=== PATIENT | female | born 1990 | race Caucasian/White ===

== ENCOUNTER 2024-11-21 17:35 | Emergency (ER) | payer BC, SELFPAY ==
[2024-11-21] MEDS ORDERED: METOCLOPRAMIDE 10 MG/2mL INJ ONE (19:19)
[2024-11-21] MEDS ORDERED: DIPHENHYDRAMINE 50 MG/ML VIAL ONE (19:19)
[2024-11-21] MEDS ORDERED: NA CHLORIDE 0.9% 1,000 ML ONE (19:19)
[2024-11-21 19:20] LABS: Absolute Basophils 0.1 K/uL (0-0.5); Absolute Eosinophils 0.4 K/uL (0-0.5); Absolute Lymphocytes (CBC) 2.4 K/uL (0.7-4.9); Absolute Monocytes 0.7 K/uL (0.1-1.3); Absolute Neutrophil 8.1 K/uL (1.8-8.0); Eosinophils % 3.4 % (0-4.4); Hematocrit 38.4 % (36.0-45.0); Hemoglobin 12.6 g/dL (12.0-15.0); Lymphocytes % 20.7 % (15.3-44.8); MCH 26.4 pg (27.0-35.0); MCHC 32.8 g/dL (32.0-36.0); MCV 80.4 fL (80-100); MPV 7.9 fL (7.6-11.3); Monocytes % 5.8 % (3.3-12.3); Neutrophils % 69.1 % (41.7-73.7); Platelets 418 thou/uL (152-406); RBC Red Blood Cell Count 4.78 M/uL (3.86-4.86); Red Cell Distribution Width 16.4 % (12.1-15.2)
[2024-11-21 19:25] LABS: PT Prothrombin Time 12.5 SECONDS (10.0-13.0); Protime INR 1.1
--- NOTE | 2024-11-21 19:35 | RAD REPORT ---
EXAM: Chest Single View HISTORY: hypertension COMPARISON: None. FINDINGS: LUNGS/PLEURA: Mild haziness in the lung bases likely due to underpenetration. Relative haziness in th e lung bases likely due to underpenetration. No definite acute process. MEDIASTINUM: The mediastinal silhouette is within normal limits. CARDIAC: The cardiac silhouette is within normal limits. UPPER ABDOMEN: No significant abnormality. BONES: No acute abnormality. LINES/TUBES/OTHER: N/A IMPRESSION: Probable underpenetration resulting in haziness at the lung bases. No definite acute process. A stand celina PA and lateral could better evaluate.
[2024-11-21 19:37] LABS: ALT/SGPT 82 U/L (13-56); AST/SGOT 40 U/L (15-37); Albumin 3.5 g/dL (3.4-5.0); Albumin/Globulin Ratio 0.9 (1.1-1.8); Alkaline Phosphatase 71 U/L (45-117); Anion Gap 10.6 mEq/L (5.0-15.0); BUN Blood Urea Nitrogen 15 mg/dL (7-18); Bicarbonate 27 mEq/L (21-32); Bilirubin Total 0.3 mg/dL (0.2-1.0); Globulin 4.1 g/dL (2.3-3.5); Glomerular Filtration Rate 79 ml/min (=/>90); Glucose Level 94 mg/dL (74-106); Magnesium 2.2 mg/dL (1.6-2.4); Potassium 3.6 mEq/L (3.5-5.1); Protein, Total 7.6 g/dL (6.4-8.2); Sodium Level 137 mEq/L (136-145); Troponin High Sensitivity 3.3 pg/mL (<58.9)
--- NOTE | 2024-11-21 19:38 | RAD REPORT ---
EXAMINATION: CT HEAD WITHOUT CONTRAST CLINICAL INDICATION: Female, 34 years old.HEADACHE TECHNIQUE: Axial CT images from the skull base to the vertex without intravenous contrast. Coronal an d sagittal reformatted images were created from the data set. One or more of the following dose reduction techniques were used: Automated exposure control, adjustment of the mA and/or kV according to patient size, and/or iterative reconstruction. Unless otherwise specified, incidental findings do not require dedicated imaging follow-up. [id number]. COMPARISON: No prior exam. FINDINGS: INTRACRANIAL: No acute intracranial hemorrhage. No hydrocephalus. No mass effect or midline shift. No significant white matter disease. VASCULATURE: No visualized abnormalities in the arteries or dural venous sinuses. SCALP/SKULL: No significant soft tissue or osseous abnormalities. SINUSES: Mucus retention cyst in the left maxillary sinus. IMPRESSION: No acute intracranial abnormality.
[2024-11-21 19:41] LABS: Bilirubin Direct < 0.2 mg/dL (0-0.2); Bilirubin Indirect, Calculated 0.1 mg/dL (0.2-0.8)
[2024-11-21] MEDS ORDERED: KETOROLAC 30 MG/ML INJ ONE (20:12)
--- NOTE | 2024-11-21 20:53 | ER ---
Nurse's Notes [facility] Name: Radha Reina Age: 34 yrs Sex: Female : 1990 Arrival Date: 11/21/2024 Time: 17:35 Bed 28 Private MD: Diagnosis: Elevated blood-pressure reading, without diagnosis of hypertension;Headache Presentation: 11/21 18:12 Chief complaint: Patient states: she has been having a migraine for a week, and went to [facility] urgent care for evaluation. it was there that she was told her blood pressure was elevated and "they gave me a shot, but my blood pressure has just gotten higher since I got home.". Coronavirus screen: At this time, the client does not indicate any symptoms associated with coronavirus-19. Ebola Screen: No symptoms or risks identified at this time. Initial Sepsis Screen: Does the patient meet any 2 criteria? No. Patient's initial sepsis screen is negative. Does the patient have a suspected source of infection? No. Patient's initial sepsis screen is negative. Risk Assessment: Do you want to hurt yourself or someone else? Patient reports no desire to harm self or others. Onset of symptoms was November 21, 2024. 18:12 Method Of Arrival: Ambulatory ap3 18:12 Acuity: WM 2 ap3 Triage Assessment: 18:15 General: Appears in no apparent distress. Behavior is calm, cooperative, appropriate ap3 for age. Pain: Complains of pain in head Pain currently is 7 out of 10 on a pain scale. Neuro: Level of Consciousness is awake, alert, obeys commands, Oriented to person, place, time, situation, Appropriate for age. Cardiovascular: Patient's skin is warm and dry. Respiratory: Airway is patent Respiratory effort is even, unlabored, Respiratory pattern is regular, symmetrical. 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 - Infectious Disease History:: Denies. - Social history:: Smoking status: Patient denies any tobacco usage or history of. Screenin:15 [facility] ED Fall Risk Assessment (Adult) History of falling in the last 3 months, ap3 including since admission No falls in past 3 months (0 pts) Confusion or Disorientation No (0 pts) Intoxicated or Sedated No (0 pts) Impaired Gait No (0 pts) Mobility Assist Device Used No (0 pt) Altered Elimination No (0 pt) Score/Fall Risk Level 0 - 2 = Low Risk Oriented to surroundings, Maintained a safe environment, Educated pt \\T\\ family on fall prevention, incl call for assistance when getting out of bed, Assessed \\T\\ reinforced patient's understanding of fall precautions, Hourly rounding (assess needs \\T\\ fall precautionary measures) done, Used ambulatory aids as needed (educated on \\T\\ assisted with). Abuse screen: Denies threats or abuse. Nutritional screening: No deficits noted. Tuberculosis screening: No symptoms or risk factors identified. Assessment: 19:00 Reassessment: Patient appears in no apparent distress at this time. Patient and/or jb4 family updated on plan of care and expected duration. Pain level reassessed. Patient is alert, oriented x 3, equal unlabored respirations, skin warm/dry/pink. 20:00 Reassessment: Patient appears in no apparent distress at this time. Patient and/or jb4 family updated on plan of care and expected duration. Pain level reassessed. Patient is alert, oriented x 3, equal unlabored respirations, skin warm/dry/pink. 21:00 Reassessment: Patient appears in no apparent distress at this time. Patient and/or jb4 family updated on plan of care and expected duration. Pain level reassessed. Patient is alert, oriented x 3, equal unlabored respirations, skin warm/dry/pink. Patient states feeling better. Vital Signs: 18:12 Pulse 96; Resp 18; Temp 98.4; Pulse Ox 100% ; Weight 92.99 kg; Height 5 ft. 0 in. ; ap3 18:15 BP 191 / 116; ap3 20:17 BP 160 / 123; Pulse 91; Resp 16; Pulse Ox 100% on R/A; jb4 21:30 BP 151 / 93; Pulse 64; Resp 16; Pulse Ox 99% on R/A; jb4 18:12 Body Mass Index 40.04 (92.99 kg, 152.4 cm) ap3 ED Course: 17:39 Patient arrived in ED. al6 17:54 Page, Clarence, PA is PHCP. cp 17:54 Arslan Sifuentes MD is Attending Physician. cp 18:14 Triage completed. ap3 18:15 Arm band placed on right wrist. ap3 19:26 CT Head Brain wo Cont In Process Unspecified. EDMS 19:28 XRAY Chest (1 view) In Process Unspecified. EDMS 21:30 Patient has correct armband on for positive identification. Bed in low position. Call jb4 light in reach. Side rails up X 1. Provided Education on: discharge instructions.. 21:30 No provider procedures requiring assistance completed. IV discontinued, intact, jb4 bleeding controlled, No redness/swelling at site. Pressure dressing applied. 21:48 Kendall Diamond, RN is Primary Nurse. jb4 Administered Medications: 20:10 Drug: NS 0.9% IV 1000 ml IV at 1000 ml once; to be given as a bolus over 60 minutes jb4 Route: IV; Rate: 1000 ml; Site: left antecubital; 21:30 Follow up: Response: No adverse reaction; Marked relief of symptoms; IV Status: Pt jb4 discharged; IV Intake: 600ml 20:11 Drug: metoCLOPramide IVP 10 mg IVP once; over 1 to 2 minutes Route: IVP; Site: left jb4 antecubital; 21:00 Follow up: Response: No adverse reaction; Marked relief of symptoms jb4 20:11 Drug: diphenhydrAMINE IVP 25 mg IVP once Route: IVP; Site: left antecubital; jb4 21:00 Follow up: Response: No adverse reaction; Marked relief of symptoms jb4 20:17 Drug: Ketorolac IVP 15 mg IVP once Route: IVP; Site: left antecubital; jb4 21:00 Follow up: Response: No adverse reaction; Marked relief of symptoms jb4 Medication: 21:30 VIS not applicable for this client. jb4 Intake: 21:30 IV: 600ml; Total: 600ml. jb4 Outcome: 20:53 Discharge ordered by . cp 21:30 Discharged to home ambulatory, with family, jb4 21:30 Condition: stable 21:30 Discharge instructions given to patient, Instructed on discharge instructions, follow up and referral plans. Demonstrated understanding of instructions, follow-up care, 21:49 Patient left the ED. jb4 Signatures: Dispatcher [employer] Clarence Flores PA PA cp Bryson, James, RN RN jb4 Kena Awad RN RN ap3 Laure Virgen6
--- NOTE | 2024-11-21 20:54 | EDPHYS ---
Physician Documentation [facility] Name: Radha Reina Age: 34 yrs Sex: Female : 1990 Arrival Date: 11/21/2024 Time: 17:35 Bed 28 Private MD: ED Physician Arslan Sifuentes HPI: 11/21 18:30 This 34 yrs old Female presents to ER via Ambulatory with complaints of High Blood cp Pressure. 18:30 The patient has elevated blood pressure and discovered this urgent care. cp 18:30 Associated signs and symptoms: Pertinent positives: nausea, vomiting, headache times 1 cp week, Pertinent negatives: chest pain, visual changes, focal weakness. 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 - Infectious Disease History:: Denies. - Social history:: Smoking status: Patient denies any tobacco usage or history of. ROS: 18:35 Constitutional: Negative for body aches, chills, fever, poor PO intake, cp 18:35 Cardiovascular: Negative for chest pain, edema, palpitations, cp 18:35 Abdomen/GI: Positive for nausea and vomiting, Negative for diarrhea, constipation, 18:35 Neuro: Positive for headache, 18:35 Eyes: Positive for photophobia, Negative for discharge, redness, cp 18:35 ENT: Negative for drainage from ear(s), ear pain, sore throat, difficulty swallowing, difficulty handling secretions, 18:35 Neck: Negative for pain with movement, pain at rest, stiffness, 18:35 All other systems are negative, Exam: 18:40 Constitutional: The patient appears in no acute distress, alert, awake, cp non-diaphoretic, non-toxic, well developed, well nourished, uncomfortable, 18:40 Head/Face: Normocephalic, atraumatic. cp 18:40 Eyes: Periorbital structures: appear normal, Pupils: equal, round, and reactive to light and accomodation, Extraocular movements: intact throughout, Conjunctiva: normal, no exudate, no injection, Sclera: no appreciated abnormality, Lids and lashes: appear normal, bilaterally, 18:40 ENT: External ear(s): are unremarkable, Nose: is normal, Mouth: Lips: moist, Oral mucosa: pink and intact, moist, Posterior pharynx: Airway: no evidence of obstruction, patent, 18:40 Chest/axilla: Inspection: normal, 18:40 Cardiovascular: Rate: normal, Rhythm: regular, 18:40 Respiratory: the patient does not display signs of respiratory distress, Respirations: cp normal, no use of accessory muscles, no retractions, labored breathing, is not present, Breath sounds: are clear throughout, no decreased breath sounds, no stridor, no wheezing, 18:40 Abdomen/GI: Inspection: abdomen appears normal, Palpation: abdomen is soft and cp non-tender, in all quadrants, 18:40 Neuro: Orientation: to person, place \T\ time. Mentation: is normal, Cerebellar function: is grossly normal, Motor: moves all fours, no focal deficits, Sensation: no obvious gross deficits, 19:43 ECG was reviewed by the Attending Physician. cp Vital Signs: 18:12 Pulse 96; Resp 18; Temp 98.4; Pulse Ox 100% ; Weight 92.99 kg; Height 5 ft. 0 in. ; ap3 18:15 BP 191 / 116; ap3 20:17 BP 160 / 123; Pulse 91; Resp 16; Pulse Ox 100% on R/A; jb4 21:30 BP 151 / 93; Pulse 64; Resp 16; Pulse Ox 99% on R/A; jb4 18:12 Body Mass Index 40.04 (92.99 kg, 152.4 cm) ap3 MDM: 18:18 Medical Screening Exam initiated cp 20:52 Data reviewed: vital signs, nurses notes, lab test result(s), EKG, radiologic studies, cp CT scan, and as a result, I will discharge patient. 20:52 Differential diagnosis: hypertensive crisis, Malignant HTN, CVA, intracerebral cp hemorrhage, migraine headache. I considered the following discharge prescriptions or medication management in the emergency department Medications were administered in the Emergency Department. See MAR. Independent interpretation of the following test(s) in the Emergency Department EKG: See my EKG interpretation above. Counseling: I had a detailed discussion with the patient and/or guardian regarding the historical points, exam findings, and any diagnostic results supporting the discharge/admit diagnosis, lab results, radiology results, the need for outpatient follow up, a family practitioner, to return to the emergency department if symptoms worsen or persist or if there are any questions or concerns that arise at home. Response to treatment: the patient's symptoms have markedly improved after treatment, and as a result, I will discharge patient. 11/21 18:26 Order name: Basic Metabolic Panel; Complete Time: 20:11 cp 11/21 20:11 Interpretation: Normal except: GFR 79. cp 11/21 18:26 Order name: CBC with Diff; Complete Time: 19:34 cp 11/21 19:34 Interpretation: Normal except: WBC 11.70; MCH 26.4; PLT 418; RDW 16.4; NEUT A 8.1. cp 11/21 18:26 Order name: LFT's; Complete Time: 20:11 cp 11/21 20:11 Interpretation: Normal except: AST 40; ALT 82; IBILI, CALC 0.1; GLOB 4.1; A/G 0.9. cp 11/21 18:26 Order name: Magnesium; Complete Time: 20:11 cp 11/21 20:11 Interpretation: Reviewed. cp 11/21 18:26 Order name: PT-INR; Complete Time: 19:34 cp 11/21 18:26 Order name: Troponin HS; Complete Time: 20:11 cp 11/21 20:11 Interpretation: Reviewed. cp 11/21 18:26 Order name: XRAY Chest (1 view); Complete Time: 19:40 cp 11/21 20:12 Interpretation: Report review. 11/21 18:26 Order name: CT Head Brain wo Cont; Complete Time: 19:40 cp 11/21 18:26 Order name: EKG; Complete Time: 18:26 cp 11/21 18:26 Order name: Cardiac monitoring; Complete Time: 20:24 cp 11/21 18:26 Order name: EKG - Nurse/Tech; Complete Time: 20:24 cp 11/21 18:26 Order name: IV Saline Lock; Complete Time: 19: cp 11/21 18:26 Order name: Labs collected and sent; Complete Time: 19: cp 11/21 18:26 Order name: O2 Per Protocol; Complete Time: 19: cp 11/21 18:26 Order name: O2 Sat Monitoring; Complete Time: 19:09 cp EC:43 Rate is 85 beats/min. Rhythm is regular. MS interval is normal. QRS interval is normal. cp QT interval is normal. T waves are Inverted in lead aVR. Interpreted by me. Reviewed by me. Administered Medications: 20:10 Drug: NS 0.9% IV 1000 ml IV at 1000 ml once; to be given as a bolus over 60 minutes jb4 Route: IV; Rate: 1000 ml; Site: left antecubital; 21:30 Follow up: Response: No adverse reaction; Marked relief of symptoms; IV Status: Pt jb4 discharged; IV Intake: 600ml 20:11 Drug: metoCLOPramide IVP 10 mg IVP once; over 1 to 2 minutes Route: IVP; Site: left jb4 antecubital; 21:00 Follow up: Response: No adverse reaction; Marked relief of symptoms jb4 20:11 Drug: diphenhydrAMINE IVP 25 mg IVP once Route: IVP; Site: left antecubital; 4 21:00 Follow up: Response: No adverse reaction; Marked relief of symptoms jb4 20:17 Drug: Ketorolac IVP 15 mg IVP once Route: IVP; Site: left antecubital; jb4 21:00 Follow up: Response: No adverse reaction; Marked relief of symptoms jb4 Disposition: 11/22 11:27 Chart complete. cp Disposition Summary: 11/21/24 20:53 Discharge Ordered Notes: Location: Home cp Problem: new cp Symptoms: have improved cp Condition: Stable cp Diagnosis - Elevated blood-pressure reading, without diagnosis of hypertension cp - Headache cp Followup: cp - With: Private Physician - When: 2 - 3 days - Reason: Recheck today's complaints Discharge Instructions: - Discharge Summary Sheet cp - General Headache Without Cause cp - How to Take Your Blood Pressure, [id number] cp - Aspirin and Your Heart cp - Form - Blood Pressure Record Sheet cp Forms: - Medication Reconciliation Form cp - Antibiotic Education cp - Prescription Opioid Use cp - Patient Portal Instructions cp - Leadership Thank You Letter cp Signatures: Dispatcher [employer] EDMS Clarence Gabriel PA PA cp Bryson, James RN RN jb4 Kena Awad RN RN ap3
[2024-11-21 22:00] VITALS: TEMP 98.4; O2SAT 100
[2024-11-21 22:03] VITALS: BP 160/123
== END 2024-11-21 21:49 | disposition home or self-care (01) ==
LOC: ER 17:35
DX: R03.0 Elevated blood-pressure reading, without diagnosis of hypertension (principal); R51.9 Headache, unspecified; R11.2 Nausea with vomiting, unspecified
CPT/HCPCS: 36415; 70450; 71045; 80048; 80076; 83735; 84484; 85025; 85610; 93005; 96361; 96374; 96375; 99284; J1200; J2765; J7030

== ENCOUNTER 2024-11-22 10:16 | Emergency (ER) | payer SELFPAY ==
--- OUTSIDE RECORDS SUMMARY | 2024-11-22 10:19 | XMS REPORT | Continuity of Care Document ---
Author Name Unknown Address [address] [facility] [address] [place], [place] [id number] [place] [address] [facility] Address [address] [facility] [address] [place] [address] Care Team Providers Care Software Quality Assurance Analyst Name Role Phone CASSIUS DOUGHERTY Attending Clinician Unavailable Payers Payer Name Policy Type Policy Number Effective Date Expirati on Date Source [facility] D [id number] 2017 00:00:00 [facility] 2 [id number] 2024 00:00:00 Allergies, Adverse Reactions, Alerts Allergy Name Allergy Type Status Severity Reaction(s) Onset Date Inactive Date Treating Clinician Comments Source No Known Allergie s DA Active U 06-14 00:00: 00 [facility] Encounters Start Date/Time End Date/Time Encounter Type Admission Type Attending Clinicians Care Facility Care Department Encounter ID Source 2021-12-21 12:40:04 Outpatient [facility] [id number] [facility] 2024-11-23 10:00:00 2024-11-23 10:00:00 Outpatient CASSIUS DOUGHERTY [id number] [facility] Results Test Description Test Time Test Comments Results Result Co mments Source PLACENTA 2018-06-17 13:58:00 --------RUN DATE: 06/17/18 Page - Lab PAGE 1 RUN TIME: 1358 Specimen Inquiry RUN USER: INTERFACE --------PATIENT: JACQUELYN DORADO LOC: [facility] U #: [id number] AGE/SX: 27/F ROOM: [facility] RE06/14/18REG DR: Marni Mike DO : 88 BED: W DIS: 06/16/18 STATUS: DIS IN TLOC: -------- SPEC #: [id number] RECD: 06/16/18-1432 STATUS: WEN MCPHERSON #: [id number] RODOLFO: 06/16/18-12[address] [facility] [address]: Marni Mike DO ENTERED: 06/16/18-1442 SP TYPE: CHAS DÍAZ DR: No Primary Care Physician ORDERED: FACUNDO [id number], BLOCK-CT/SL-NBC/5, SLIDE-CT/SL-NBC/5 COPIES TO: No Primary Care Physician Use by ED only for patient without primary care physician ED USE ONLY-Pt.w/o primary Marni Small DO [address] [place] [address] [address] [place] [address] PROCEDURES: FACUNDO [id number] (06/16/18-1441) BLOCK-CT/SL-NBC (06/16/18) SLIDE-CT/SL-NBC (06/16/18) TISSUES: A. PLACENTA CLINICAL HISTORY MATERNAL TEMPERATURE FINAL DIAGNOSIS PLACENTA, VAGINAL DELIVERY: MATURE PLACENTA, 541 GRAMS, APPROXIMATELY 75TH PERCENTILE FOR GESTATIONAL AGE MEMBRANES AND TRI-VASCULAR UMBILICAL CORD: NO ACUTE INFLAMMATION PARENCHYMA WITH NO PATHOLOGIC ALTERATION CPT: 65014 GROSS DESCRIPTION The paperwork, container and cassettes are all labeled [id number]. Received in formalin labeled with the patient's name (Jacquelyn Dorado), medical record number and "placenta" is a placenta with attached membranes and umbilical cord. The trimmed placenta is 541 grams and is 21 x 18 x 3.5 cm. The membranes are opaque, viera-brown and have a marginal insertion and grossly rupture 7 cm from the margin of the placenta. The hallman-viera umbilical cord is 47 cm in length x 2 cm in diameter. The cord grossly has CONTINUED ON NEXT PAGE --------RUN DATE: 06/17/18 Page - Lab PAGE 2 RUN TIME: 1358 Specimen Inquiry RUN USER: INTERFACE --------SPEC #: [id number] PATIENT: JACQUELYN DORADO #[id number] (Continued) GROSS DESCRIPTION (Continued) three vessels and inserts 5 cm from the margin of the placenta. The surface is viera-purple with prominent vascular arborization by very small caliber vessels. The maternal surface has intact cotyledons without increased fibrin deposition. The parenchyma is spongy, hallman-pink. Religious Leader sections are submitted. A1, A2, maternal surface; A3, surface; A4, membranes; A5, umbilical cord. ANIA//carlos Signed SIGNATURE ON FILE Lines,Pearl PASTRANA 06/17/18 1358 -------- END OF REPORT
[2024-11-22] MEDS ORDERED: AMLODIPINE 10 MG TAB ONE (10:37)
--- NOTE | 2024-11-22 11:35 | EDPHYS ---
Physician Documentation [facility] Name: Radha Reina Age: 34 yrs Sex: Female : 1990 Arrival Date: 11/22/2024 Time: 10:16 Bed DX4 Private MD: ED Physician Austin Cárdenas HPI: 11/22 10:40 This 34 yrs old Female presents to ER via Ambulatory with complaints of High Blood rt Pressure. 10:40 Patient presents to the ED with reports of elevated blood pressure. The patient was rt seen in the ED yesterday for headache, elevated blood pressures which did improve following headache cocktail. She had a negative EKG, labs, CT scan of the head at that time. Patient states that her blood pressure was elevated today, she denies any current headache or reports a mild chest discomfort. Denies other acute complaints at this time, symptoms are moderate in severity, no other aggravating or alleviating factors.. 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 - Infectious Disease History:: Denies. - Social history:: Smoking status: Patient denies any tobacco usage or history of. - Family history:: not pertinent. ROS: 10:40 Constitutional: Negative for fever, chills, and weight loss, Respiratory: Negative for rt shortness of breath, cough, wheezing, and pleuritic chest pain, Abdomen/GI: Negative for abdominal pain, nausea, vomiting, diarrhea, and constipation, MS/Extremity: Negative for injury and deformity, Skin: Negative for injury, rash, and discoloration, Neuro: Negative for headache, weakness, numbness, tingling, and seizure, 10:40 Cardiovascular: Positive for chest pain, Negative for edema, Exam: 10:40 Constitutional: This is a well developed, well nourished patient who is awake, alert, rt and in no acute distress. Head/Face: Normocephalic, atraumatic. Chest/axilla: Normal chest wall appearance and motion. Nontender with no deformity. No lesions are appreciated. Cardiovascular: Regular rate and rhythm with a normal S1 and S2. No gallops, murmurs, or rubs. Normal PMI, no JVD. No pulse deficits. Respiratory: Lungs have equal breath sounds bilaterally, clear to auscultation and percussion. No rales, rhonchi or wheezes noted. No increased work of breathing, no retractions or nasal flaring. Abdomen/GI: Soft, non-tender, with normal bowel sounds. No distension or tympany. No guarding or rebound. No evidence of tenderness throughout. Skin: Warm, dry with normal turgor. Normal color with no rashes, no lesions, and no evidence of cellulitis. MS/ Extremity: Pulses equal, no cyanosis. Neurovascular intact. Full, normal range of motion. Neuro: Awake and alert, GCS 15, oriented to person, place, time, and situation. Cranial nerves II-XII grossly intact. Motor strength 5/5 in all extremities. Sensory grossly intact. Cerebellar exam normal. Normal gait. 10:40 ECG was reviewed by the Attending Physician. Vital Signs: 10:28 BP 171 / 109; Pulse 77; Resp 18; Temp 97.6; Pulse Ox 98% on R/A; Weight 92.08 kg; iw Height 5 ft. 5 in. ; 11:45 BP 196 / 106; Pulse 68; Resp 17; Pain 5/10; ll1 12:09 BP 190 / 105; Pulse 68; Resp 17; Pulse Ox 98% ; Pain 2/10; ll1 10:28 Body Mass Index 33.78 (92.08 kg, 165.1 cm) iw 11:45 Pain Scale: Adult ll1 12:09 Pain Scale: Adult ll1 MDM: 10:24 Medical Screening Exam initiated rt 13:12 Differential diagnosis: Essential hypertension. Data reviewed: vital signs, nurses rt notes, lab test result(s), EKG. Consideration of Admission/Observation Escalation of care including admission/observation considered. Patient with no signs of endorgan dysfunction, had negative workup yesterday, EKG and troponin are unremarkable today. Patient is stable for outpatient care, will start patient on antihypertensive, patient to follow-up as an outpatient.. I considered the following discharge prescriptions or medication management in the emergency department Medications were administered in the Emergency Department. See MAR. Test considered but Not performed: Other Details BMP, CT of the head were negative yesterday, do not believe that repeats are needed for today.. Counseling: I had a detailed discussion with the patient and/or guardian regarding the historical points, exam findings, and any diagnostic results supporting the discharge/admit diagnosis, the presence of at least one elevated blood pressure reading (>120/80) during this emergency department visit, lab results, the need for outpatient follow up. Response to treatment: the patient's symptoms have markedly improved after treatment. 11/22 10: Order name: Troponin High Sensitivity; Complete Time: 11:10 rt 11/22 10: Order name: EKG; Complete Time: 10:30 rt 11/22 10: Order name: EKG - Nurse/Tech; Complete Time: 10:35 rt EC:40 Rate is 69 beats/min. Rhythm is regular, Normal Sinus Rhythm with No ectopy. QRS [facility] rt is Normal. SC interval is normal. QRS interval is normal. QT interval is normal. No Q waves. T waves are Normal. No ST changes noted. Interpreted by me. Administered Medications: 10:41 Drug: amLODIPine PO 10 mg PO once Route: PO; iw 12:09 Follow up: Response: No adverse reaction ll1 11:45 Drug: Ketorolac IVP 15 mg IVP once Route: IVP; Site: left forearm; ll1 12:10 Follow up: Response: No adverse reaction; Pain is decreased ll1 11:45 Drug: Acetaminophen PO 1000 mg PO once Route: PO; ll1 12:20 Follow up: Response: No adverse reaction ll1 Disposition Summary: 11/22/24 11:34 Discharge Ordered Notes: Location: Home rt Problem: an ongoing problem rt Symptoms: have improved rt Condition: Stable rt Diagnosis - Essential (primary) hypertension rt Followup: rt - With: Private Physician - When: 2 - 3 days - Reason: Discharge Instructions: - Discharge Summary Sheet rt - Hypertension, Adult rt Forms: - Medication Reconciliation Form rt - Antibiotic Education rt - Prescription Opioid Use rt - Patient Portal Instructions rt - Leadership Thank You Letter rt Prescriptions: - Norvasc 5 mg Oral tablet - take 1 tablet ORAL route once daily; 30 tablet; Refills: 0, Product Selection rt Permitted Signatures: Dispatcher [employer] Kimberley Vasquez RN RN iw Bessie Rudd RN RN ll1 Austin Cárdenas MD MD rt
--- NOTE | 2024-11-22 11:35 | ER ---
Nurse's Notes [facility] Name: Radha Reina Age: 34 yrs Sex: Female : 1990 Arrival Date: 11/22/2024 Time: 10:16 Bed DX4 Private MD: Diagnosis: Essential (primary) hypertension Presentation: 11/22 10:25 Chief complaint: Patient states: high blood pressure since last night, BP was 177/91 iw this morning , not on BP meds, was recently seen for migraine headache. Coronavirus screen: At this time, the client does not indicate any symptoms associated with coronavirus-19. Ebola Screen: No symptoms or risks identified at this time. Initial Sepsis Screen: Does the patient meet any 2 criteria? No. Patient's initial sepsis screen is negative. Does the patient have a suspected source of infection? No. Patient's initial sepsis screen is negative. Risk Assessment: Do you want to hurt yourself or someone else? Patient reports no desire to harm self or others. 10:25 Method Of Arrival: Ambulatory iw 10:25 Acuity: WM 3 iw 12:19 Onset of symptoms was November 22, 2024. 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 - Infectious Disease History:: Denies. - Social history:: Smoking status: Patient denies any tobacco usage or history of. - Family history:: not pertinent. Screenin:42 [facility] ED Fall Risk Assessment (Adult) History of falling in the last 3 months, iw including since admission No falls in past 3 months (0 pts) Confusion or Disorientation No (0 pts) Intoxicated or Sedated No (0 pts) Impaired Gait No (0 pts) Mobility Assist Device Used No (0 pt) Altered Elimination No (0 pt) Score/Fall Risk Level 0 - 2 = Low Risk Oriented to surroundings, Maintained a safe environment. Abuse screen: Denies threats or abuse. Denies injuries from another. Nutritional screening: No deficits noted. Tuberculosis screening: No symptoms or risk factors identified. Assessment: 10:42 General: Appears in no apparent distress. Behavior is calm, cooperative. Pain: iw Complains of pain in head Pain. Neuro: Level of Consciousness is awake, alert, obeys commands, Oriented to person, place, time, situation, Moves all extremities. Full function. Cardiovascular: Reports chest pain, Patient's skin is warm and dry. Respiratory: Respiratory effort is even, unlabored, Respiratory pattern is regular. Derm: Skin is intact, is healthy with good turgor. Musculoskeletal: Range of motion: intact in all extremities. 11:25 Reassessment: No changes from previously documented assessment. Patient and/or family ll1 updated on plan of care and expected duration. Pain level reassessed. 11:45 Reassessment: Dr. Cárdenas informed of elevated BP still. Will re check in about 20 ll1 minutes. 12:19 Reassessment: Dr. Cárdenas informed of BP. Still cleared for discharge. ll1 Vital Signs: 10:28 BP 171 / 109; Pulse 77; Resp 18; Temp 97.6; Pulse Ox 98% on R/A; Weight 92.08 kg; iw Height 5 ft. 5 in. ; 11:45 BP 196 / 106; Pulse 68; Resp 17; Pain 5/10; ll1 12:09 BP 190 / 105; Pulse 68; Resp 17; Pulse Ox 98% ; Pain 2/10; ll1 10:28 Body Mass Index 33.78 (92.08 kg, 165.1 cm) iw 11:45 Pain Scale: Adult ll1 12:09 Pain Scale: Adult ll1 ED Course: 10:18 Patient arrived in ED. im 10:19 Austin Cárdenas MD is Attending Physician. rt 10:26 Triage completed. iw 10:27 Arm band placed on. iw 10:28 Kimberley Fowler, RN is Primary Nurse. iw 10:49 Troponin High Sensitivity Sent. bc6 10:50 Initial lab(s) drawn, by me, sent to lab. Inserted saline lock: 20 gauge in left bc6 antecubital area, using aseptic technique. Blood collected. Flushed with 10 mL NS. 11:46 Patient has correct armband on for positive identification. Bed in low position. ll1 Provided Education on: ER procedures and process. Client placed on continuous cardiac and pulse oximetry monitoring. NIBP monitoring applied. 12:19 No provider procedures requiring assistance completed. IV discontinued, intact, ll1 bleeding controlled, No redness/swelling at site. Pressure dressing applied. Administered Medications: 10:41 Drug: amLODIPine PO 10 mg PO once Route: PO; iw 12:09 Follow up: Response: No adverse reaction ll1 11:45 Drug: Ketorolac IVP 15 mg IVP once Route: IVP; Site: left forearm; ll1 12:10 Follow up: Response: No adverse reaction; Pain is decreased ll1 11:45 Drug: Acetaminophen PO 1000 mg PO once Route: PO; ll1 12:20 Follow up: Response: No adverse reaction ll1 Medication: 10:42 VIS not applicable for this client. Outcome: 11:34 Discharge ordered by MD. rt 12:19 Discharged to home ambulatory, 1 12:19 Condition: stable 12:19 Discharge instructions given to patient, Instructed on discharge instructions, follow up and referral plans. medication usage, Demonstrated understanding of instructions, follow-up care, medications, Prescriptions given X 1, 12:19 Patient left the ED. 1 Signatures: Kimberley Fowler RN RN iw Bessie Rudd RN RN ll1 Austin Cárdenas MD MD rt [place]er [place] 6 Fabiola [place] [employer]: (The following items were deleted from the chart) 10:34 10:28 Pulse 77bpm; Resp 18bpm; Pulse Ox 98% RA; Temp 97.6F; iw iw
[2024-11-22] MEDS ORDERED: ACETAMINOPHEN 500 MG TAB ONE (11:40)
[2024-11-22] MEDS ORDERED: KETOROLAC 30 MG/ML INJ ONE (11:40)
[2024-11-22 12:24] VITALS: TEMP 97.6; O2SAT 98
[2024-11-22 12:27] VITALS: BP 190/105
== END 2024-11-22 12:19 | disposition home or self-care (01) ==
LOC: ER 10:16
DX: I10 Essential (primary) hypertension (principal)
CPT/HCPCS: 36415; 84484